=== PATIENT | female | born 1990 | race Caucasian/White ===

== ENCOUNTER 2016-02-25 15:15 | Day surgery (SDC) | payer OTHER ==
[2016-02-25] MEDS ORDERED: SCOPOLAMINE PATCH TOP ONE (15:52)
[2016-02-25] MEDS ORDERED: ceFAZolin 2 GM/50 ML 50 ML IV ONE (15:52)
[2016-02-25] MEDS ORDERED: CELECOXIB 100 MG CAPSULE PO ONE (15:53)
[2016-02-25] MEDS ORDERED: ACETAMINOPHEN 1,000 MG/100 ML 100 ML IV ONE (15:53)
[2016-02-25] MEDS ORDERED: LACTATED RINGERS 1,000 ML IV ONE (16:14)
[2016-02-25] MEDS ORDERED: MIDAZOLAM 2 MG/2 ML VIAL IVP ONE (16:30)
[2016-02-25] MEDS ORDERED: PROPOFOL 200 MG/20 ML VIAL IVP ONE (16:30)
[2016-02-25] MEDS ORDERED: LIDOCAINE-MPF 2% 5 ML VIAL IM ONE (16:30)
[2016-02-25] MEDS ORDERED: fentaNYL 100 MCG/2 ML VIAL IVP ONE (16:30)
[2016-02-25] MEDS ORDERED: ACETAMINOPHEN 1,000 MG/100 ML VIAL IV ONE (16:30)
[2016-02-25] MEDS ORDERED: ceFAZolin 2 GM/50 ML BAG IV ONE (16:30)
[2016-02-25] MEDS ORDERED: BUPIVACAINE 0.25% PF 30 ML VIAL SUBQ ONE ×2 (16:50→17:01)
== END 2016-02-25 15:16 | disposition home or self-care (01) ==
PROC: 0RBN0ZZ Excision of Right Wrist Joint, Open Approach (ICD-10-PCS; principal; 2016-02-25 17:05)
DX: M67.431 Ganglion, right wrist (principal); F17.210 Nicotine dependence, cigarettes, uncomplicated
CPT/HCPCS: 25111; 81025; A9270; J0131; J0690; J3490; J7120

== ENCOUNTER 2016-12-24 11:30 | Emergency (ER) | payer OTHER ==
[2016-12-24] MEDS ORDERED: CYCLOBENZAPRINE 10 MG TABLET PO STA (12:45)
[2016-12-24] MEDS ORDERED: KETOROLAC 60 MG/2 ML VIAL IM STA (12:45)
--- NOTE | 2016-12-24 12:48 | ED Physician Documentation ---
PD HPI BACK INJURY - Stated complaint Stated Complaint: LOW BACK PX - History obtained from History obtained from: Patient, Family - History of Present Illness Location: Right, Lower Type of injury: Other (no recent injury, but "threw out" her back in September) Timing - onset: Other (states started hurting again yesterday) Timing - details: Gradual onset Pain level max: 7 Pain level now: 6 Quality: Pain, Spasm, Similar to prior episodes Improved by: Rest Worsened by: Moving, Palpating Associated symptoms: No: Fever, Weakness, Numbness, Incontinent of urine, Unable to urinate, Hematuria, Incontinent of stool Contributing factors: No: Anticoagulated, Prior back surgery Recently seen: Not recently seen - Additional information Additional information: states radiates to the R leg. Review of Systems Constitutional: denies: Fever, Chills Nose: denies: Rhinorrhea / runny nose, Congestion Throat: denies: Sore throat Cardiac: denies: Chest pain / pressure Respiratory: denies: Cough GI: denies: Abdominal Pain : denies: Dysuria, Frequency, Hesitancy, Now EGA Skin: denies: Rash Musculoskeletal: denies: Neck pain Neurologic: denies: Focal weakness, Numbness, Headache PD PAST MEDICAL HISTORY - Past Medical History Past Medical History: Yes Cardiovascular: None Respiratory: None Endocrine/Autoimmune: None GI: None : None HEENT: None Psych: None Musculoskeletal: Other Derm: None Other Past Medical History: wrist cysts - Past Surgical History Past Surgical History: Yes - Present Medications Home Medications: Ambulatory Orders Medication Instructions Recorded Confirmed Norethindrone AC-Eth Estradiol 1 each PO DAILY 11/13/15 12/24/16 [Loestrin 21 1.5-30 Tablet] Cyclobenzaprine [Flexeril] 10 mg PO TID PRN #20 tablet 12/24/16 Meloxicam [Mobic] 15 mg PO DAILY PRN #20 tablet 12/24/16 - Allergies Allergies/Adverse Reactions: Allergies Allergy/AdvReac Type Severity Reaction Status Date / Time brass AdvReac Rash Uncoded 12/24/16 11:36 - Social History Does the pt smoke?: No Smoking Status: Current every day smoker Does the pt drink ETOH?: Yes Does the pt have substance abuse?: No - Immunizations Immunizations are current?: Yes - POLST Patient has POLST: No PD ED PE NORMAL - Vitals Vital signs reviewed: Yes - General General: Alert and oriented X 3, No acute distress - HEENT HEENT: Moist mucous membranes - Neck Neck: Supple, no meningeal sign - Cardiac Cardiac: RRR - Respiratory Respiratory: No respiratory distress, Clear bilaterally - Abdomen Abdomen: Soft, Non tender, Non distended - Back Back: No spinal TTP (no midline TTP or percussion. paraspinal spasm B low lumbar. NVI.) - Derm Derm: Warm and dry - Extremities Extremities: Other (normal bilateral lower extremity patellar and ankle jerk reflexes. Normal great toe extension bilaterally) - Neuro Neuro: Alert and oriented X 3, multiple resaw operator 2-12 intact, No motor deficit, No sensory deficit, Normal speech - Psych Psych: Normal mood, Normal affect Results - Vitals Vitals: Vital Signs - 24 hr 12/24/ 11:34 Temperature 36 C L Heart Rate 87 Respiratory 18 Rate Blood Pressure 135/94 H O2 Saturation 99 Oxygen O2 Source Room air PD MEDICAL DECISION MAKING - ED course Complexity details: re-evaluated patient, considered differential (no cauda equina, no spinal epidural abscess, no fracture, no aortic dissection or evidence of aneursym rupture), d/w patient, d/w family ED course: Patient is a 26-year-old female who presents to the emergency department with what appears to be sciatica of the right side. No evidence of cauda equina, epidural abscess or fracture. Ambulating well. Given Toradol, dexamethasone and Flexeril. No neurological deficits. Patient counseled regarding signs and symptoms for which I believe and urgent re-evaluation would be necessary. Patient with good understanding of and agreement to plan and is comfortable going home at this time This document was made in part using voice recognition software. While efforts are made to proofread this document, sound alike and grammatical errors may occur. Departure - Departure Disposition: 01 Home, Self Care Clinical Impression: Sciatica Qualifiers: Laterality: right Qualified Code(s): M54.31 - Sciatica, right side Condition: Good Instructions: ED Sciatica, ED Back Care Tips Follow-Up: Richa Souza ARNP [Primary Care Provider] - Within 1 week Prescriptions: Cyclobenzaprine [Flexeril] 10 mg PO TID PRN #20 tablet PRN Reason: Spasms Meloxicam [Mobic] 15 mg PO DAILY PRN #20 tablet PRN Reason: pain Comments: Return if you worsen. This should improve over the next few days. [place]. Do not drive or operate heavy machinery while taking the Flexeril
[2016-12-24] MEDS ORDERED: CYCLOBENZAPRINE 10 MG TABLET PO ONE (12:54)
[2016-12-24] MEDS: DEXAMETHASONE 10 MG/ML VIAL PO STA ×2 (12:54→12:58)
[2016-12-24] MEDS ORDERED: KETOROLAC 60 MG/2 ML VIAL ONE (12:54)
[2016-12-24] MEDS ORDERED: DEXAMETHASONE 10 MG/ML VIAL ONE (12:55)
[2016-12-24 13:09] VITALS: BP 131/87
== END 2016-12-24 13:08 | disposition home or self-care (01) ==
LOC: ED 11:30
DX: M54.31 Sciatica, right side (principal); F17.200 Nicotine dependence, unspecified, uncomplicated
CPT/HCPCS: 96372; 99283; A9270

== ENCOUNTER 2017-05-16 17:35 | Emergency (ER) | payer OTHER ==
--- NOTE | 2017-05-16 20:36 | ED Physician Documentation ---
PD HPI BACK PAIN - Stated complaint Stated Complaint: BACK PX - Chief complaint Chief Complaint: Back Pain - History obtained from History obtained from: Patient - History of Present Illness Timing - onset: Yesterday Timing - duration: Days Timing - details: Abrupt onset, Constant, Waxing and waning Pain level now: 7 Location: Lower, Other (midline) Quality: Pain, Similar to prior episodes Associated symptoms: No: Fever, Weakness, Numbness, Incontinent of urine, Unable to urinate, Hematuria, Incontinent of stool Improves with: Rest Worsened by: Movement Similar symptoms before: Diagnosis (sciatica) - Additional information Additional information: c/o sudden onset midline low back pain radiating down RLE since yesterday; she had been crouched down working on furniture and upon standing, she had sudden onset midline LBP. Similar episode 6 months ago for which she was seen in this ED. She followed-up with her doctor at [facility], no testing or further treatment, as symptoms had resolved. Review of Systems Constitutional: denies: Fever : denies: Dysuria, Frequency, Unable to Void, Incontinent Musculoskeletal: reports: Back pain Neurologic: denies: Focal weakness, Numbness PD PAST MEDICAL HISTORY - Past Medical History Cardiovascular: None Respiratory: None Endocrine/Autoimmune: None GI: None : None HEENT: None Psych: None Musculoskeletal: Other Derm: None - Past Surgical History Past Surgical History: Yes - Present Medications Home Medications: Ambulatory Orders Medication Instructions Recorded Confirmed Norethindrone AC-Eth Estradiol 1 each PO DAILY 11/13/15 05/16/17 [Loestrin 21 1.5-30 Tablet] Cyclobenzaprine [Flexeril] 10 mg PO TID PRN #20 tablet 05/16/17 HYDROcod/ACETAM 5/325 [[place] 5/325] 1 - 2 ea PO Q6H PRN #15 tablet 05/16/17 Meloxicam [Mobic] 15 mg PO DAILY PRN #20 tablet 05/16/17 - Allergies Allergies/Adverse Reactions: Allergies Allergy/AdvReac Type Severity Reaction Status Date / Time brass AdvReac Rash Uncoded 05/16/17 20:09 - Social History Does the pt smoke?: No Smoking Status: Never smoker Does the pt drink ETOH?: Yes Does the pt have substance abuse?: No - Immunizations Immunizations are current?: Yes - POLST Patient has POLST: No PD ED PE NORMAL - Vitals Vital signs reviewed: Yes - General General: Alert and oriented X 3, No acute distress, Well developed/nourished - Back Back: No CVA TTP, No spinal TTP - Derm Derm: Normal color, Warm and dry, No rash - Extremities Extremities: No edema - Neuro Neuro: Alert and oriented X 3, No motor deficit (5/5 bilateral plantarflexion and hip extension) Results - Vitals Vitals: Vital Signs - 24 hr 05/16/17 05/16/17 18:07 21:13 Temperature 36.7 C 36.8 C Heart Rate 88 89 Respiratory 17 18 Rate Blood Pressure 154/107 H 146/88 H O2 Saturation 99 98 Oxygen O2 Source Room air PD MEDICAL DECISION MAKING - ED course Complexity details: reviewed old records, considered differential, d/w patient Departure - Departure Disposition: 01 Home, Self Care Clinical Impression: Back pain Qualifiers: Back pain location: low back pain Chronicity: acute Back pain laterality: right Sciatica presence: with sciatica Sciatica laterality: sciatica of right side Qualified Code(s): M54.41 - Lumbago with sciatica, right side Condition: Good Instructions: NARCOTIC, Oral, ED Sciatica Follow-Up: NATALIYA BLOOD PA-C [Primary Care Provider] - (This week as scheduled) Prescriptions: Cyclobenzaprine [Flexeril] 10 mg PO TID PRN #20 tablet PRN Reason: Spasms HYDROcod/ACETAM 5/325 [[place] 5/325] 1 - 2 ea PO Q6H PRN #15 tablet PRN Reason: Pain Meloxicam [Mobic] 15 mg PO DAILY PRN #20 tablet PRN Reason: Pain Comments: Use the mobic (anti-inflammatory) as prescribed as needed for pain. You can also take the flexeril for muscle spasm or if the mobic alone does not adequately relieve the pain. If these two medications do not provide adequate relief, you can then also take the Vicodin (hydrocodone) as needed as prescribed. Forms: Activity restrictions Discharge Date/Time: 05/16/17 21:13
[2017-05-16] MEDS ORDERED: KETOROLAC 60 MG/2 ML VIAL IM STA (20:50)
[2017-05-16] MEDS ORDERED: DEXAMETHASONE 10 MG/ML VIAL PO STA (20:50)
[2017-05-16] MEDS ORDERED: CYCLOBENZAPRINE 10 MG TABLET PO STA (20:51)
[2017-05-16] MEDS ORDERED: HYDROcod/ACETAM 5/325 MG TABLET PO STA (20:51)
[2017-05-16 21:14] VITALS: BP 146/88
== END 2017-05-16 21:13 | disposition home or self-care (01) ==
LOC: ED 17:35
DX: M54.41 Lumbago with sciatica, right side (principal)
CPT/HCPCS: 96372; 99283; A9270

== ENCOUNTER 2018-06-17 10:02 | Emergency (ER) | payer OTHER ==
[2018-06-17 10:08] VITALS: BP 144/93
--- NOTE | 2018-06-17 11:04 | ED Physician Documentation ---
PD HPI HEENT - Stated complaint Stated Complaint: R EYE PX/SWELLING - Chief complaint Chief Complaint: Heent - History obtained from History obtained from: Patient, Family - History of Present Illness Timing - onset: How many days ago (3) Timing - duration: Days (3) Timing - details: Gradual onset, Still present Location: Nose, Throat, Other (right eye) Improves: Medication Worsens: Swalllowing Associated symptoms: Congestion, Rhinorrhea, Swollen nodes, Headache, Cough Similar symptoms before: Diagnosis (URI) Recently seen: Clinic - Additional information Additional information: 27-year-old female has developed congestion sore throat and intermittent cough for the past 3 days. She is gone into see the primary care doctor yesterday and only had the swollen lymph nodes and when she returned home she began to develop some drainage from the right eye and some irritation to the right eye as well. She has had this happen to her one time previously. Review of Systems Constitutional: denies: Fever Eyes: reports: Discharge, Irritation. denies: Decreased vision Ears: denies: Ear pain Nose: reports: Rhinorrhea / runny nose, Congestion Throat: reports: Sore throat Cardiac: denies: Chest pain / pressure, Palpitations Respiratory: reports: Cough. denies: Dyspnea GI: denies: Vomiting PD PAST MEDICAL HISTORY - Past Medical History Cardiovascular: None Respiratory: None Endocrine/Autoimmune: None GI: None : None HEENT: None Psych: None Musculoskeletal: Other Derm: None - Past Surgical History Past Surgical History: Yes - Present Medications Home Medications: Ambulatory Orders Medication Instructions Recorded Confirmed Norethindrone AC-Eth Estradiol 1 each PO DAILY 11/13/15 05/16/17 [Loestrin 21 1.5-30 Tablet] Cyclobenzaprine [Flexeril] 10 mg PO TID PRN #20 tablet 05/16/17 Meloxicam [Mobic] 15 mg PO DAILY PRN #20 tablet 05/16/17 RX: HYDROcod/ACETAM 5/325 [[place] 1 - 2 ea PO Q6H PRN #15 tablet 05/16/17 5/325] Neomycin/Poly/Dex Ophth Drops 1 drops RIGHTEYE QID #1 bottle 06/17/18 [Maxitrol Ophth Drops] - Allergies Allergies/Adverse Reactions: Allergies Allergy/AdvReac Type Severity Reaction Status Date / Time brass AdvReac Rash Uncoded 06/17/18 10:08 - Social History Does the pt smoke?: No Smoking Status: Never smoker Does the pt drink ETOH?: Yes Does the pt have substance abuse?: No - Immunizations Immunizations are current?: Yes - POLST Patient has POLST: No PD ED PE NORMAL - Vitals Vital signs reviewed: Yes (hypertensive ) - General General: Alert and oriented X 3, No acute distress, Well developed/nourished - HEENT HEENT: Atraumatic, PERRL, EOMI, Ears normal, Moist mucous membranes, Pharynx benign, Other (The right eye has matting and discharge and there is injection to the sclera and swelling of the lids laterally ) - Neck Neck: Supple, no meningeal sign, No bony TTP - Cardiac Cardiac: RRR, No murmur - Respiratory Respiratory: No respiratory distress, Clear bilaterally - Abdomen Abdomen: Soft, Non tender - Back Back: No CVA TTP, No spinal TTP - Derm Derm: Normal color, Warm and dry, No rash - Extremities Extremities: No deformity, No edema - Neuro Neuro: Alert and oriented X 3, wax ball molder 2-12 intact, No motor deficit, No sensory deficit, Normal speech Eye Opening: Spontaneous Motor: Obeys Commands Verbal: Oriented GCS Score: 15 - Psych Psych: Normal mood, Normal affect Results - Vitals Vitals: Vital Signs - 24 hr 06/17/18 10:07 Temperature 36.8 C Heart Rate 90 Respiratory 18 Rate Blood Pressure 144/93 H O2 Saturation 97 Oxygen O2 Source Room air - Labs Labs: Laboratory Tests 06/17/18 11:08 Group A Strep Rapid Negative PD MEDICAL DECISION MAKING - ED course Complexity details: reviewed results, re-evaluated patient, considered differential, d/w patient ED course: 27 y/o female with sore throat has conjunctivitis today and we will place her on some drops. I suspect her URI is viral. Departure - Departure Disposition: 01 Home, Self Care Clinical Impression: Viral URI Conjunctivitis Qualifiers: Conjunctivitis type: acute Acute conjunctivitis type: bacterial Laterality: right Qualified Code(s): H10.31 - Unspecified acute conjunctivitis, right eye Condition: Stable Instructions: ED Conjunctivitis Bacterial, ED URI Viral Follow-Up: Janeth Staton MD [Primary Care Provider] - Prescriptions: Neomycin/Poly/Dex Ophth Drops [Maxitrol Ophth Drops] 1 drops RIGHTNILAME QID #1 bottle Forms: Activity restrictions Discharge Date/Time: 06/17/18 11:46
== END 2018-06-17 11:46 | disposition home or self-care (01) ==
LOC: ED 10:02
DX: J06.9 Acute upper respiratory infection, unspecified (principal); H10.31 Unspecified acute conjunctivitis, right eye
CPT/HCPCS: 87070; 87430; 99283

== ENCOUNTER 2018-07-18 22:21 | Emergency (ER) | payer OTHER ==
[2018-07-18] MEDS ORDERED: ACETAMINOPHEN 500 MG TABLET PO STA (22:37)
--- NOTE | 2018-07-18 22:49 | ED Physician Documentation ---
PD HPI URI - Stated complaint Stated Complaint: SORE THROAT/WHITE SPOTS ON THROAT - Chief complaint Chief Complaint: Heent - History obtained from History obtained from: Patient - History of Present Illness Timing - onset: Yesterday Timing duration: Hours (24) Timing details: Abrupt onset Associated symptoms: Chills, Nasal congestion, Sore throat. No: Fever, Ear pain, Dry cough, Productive cough, Dyspnea, NVD Contributing factors: No: Sick contact Improves by: Nothing Recently seen: Not recently seen - Additional information Additional information: This is a 27-year-old presents with complaints that she saw white spots in the back of her throat and is very sore. She has a very stuffy nose and she is been shivering all day but did not check her temperature. She took DayQuil today and also Mucinex the last dose of anything was at 2 PM. She is also tried Cepacol lozenges but still has a significant sore throat. No coughing and no rash. She has not been around anybody that she knows has been sick. Review of Systems Constitutional: reports: Chills. denies: Fever Ears: denies: Ear pain Nose: reports: Congestion (No discharge), Sinus pressure / pain. denies: Rhinorrhea / runny nose Throat: reports: Sore throat Cardiac: denies: Palpitations Respiratory: denies: Dyspnea, Cough GI: denies: Nausea, Vomiting, Diarrhea PD PAST MEDICAL HISTORY - Past Medical History Past Medical History: Yes Cardiovascular: None Respiratory: None Neuro: None Endocrine/Autoimmune: None GI: None RAILROAD MECHANIC: None : None HEENT: None Psych: None Musculoskeletal: Other Derm: None - Past Surgical History Past Surgical History: Yes - Present Medications Home Medications: Ambulatory Orders Medication Instructions Recorded Confirmed Norethindrone AC-Eth Estradiol 1 each PO DAILY 11/13/15 05/16/17 [Loestrin 21 1.5-30 Tablet] Cyclobenzaprine [Flexeril] 10 mg PO TID PRN #20 tablet 05/16/17 Meloxicam [Mobic] 15 mg PO DAILY PRN #20 tablet 05/16/17 RX: HYDROcod/ACETAM 5/325 [[place] 1 - 2 ea PO Q6H PRN #15 tablet 05/16/17 5/325] Neomycin/Poly/Dex Ophth Drops 1 drops RIGHTEYE QID #1 bottle 06/17/18 [Maxitrol Ophth Drops] - Allergies Allergies/Adverse Reactions: Allergies Allergy/AdvReac Type Severity Reaction Status Date / Time brass AdvReac Rash Uncoded 07/18/18 22:33 - Social History Does the pt smoke?: Yes Smoking Status: Current every day smoker Does the pt drink ETOH?: Yes Does the pt have substance abuse?: No - Immunizations Immunizations are current?: Yes - POLST Patient has POLST: No PD ED PE NORMAL - Vitals Vital signs reviewed: Yes - General General: Alert and oriented X 3, No acute distress, Well developed/nourished - HEENT HEENT: Atraumatic, PERRL, EOMI, Ears normal, Moist mucous membranes, Pharynx benign (There are no obvious white patches at this time. Tonsils are minimally enlarged. Minimal erythema.) - Neck Neck: Supple, no meningeal sign, Other (She does have several small enlarged lymph nodes anterior and posterior cervical) - Cardiac Cardiac: RRR, No murmur - Respiratory Respiratory: No respiratory distress - Abdomen Abdomen: Normal bowel sounds - Derm Derm: Normal color - Neuro Neuro: Alert and oriented X 3 - Psych Psych: Normal mood, Normal affect Results - Vitals Vitals: Vital Signs - 24 hr 07/18/18 07/18/18 22:32 23:35 Temperature 38.8 C H 37.5 C Heart Rate 109 H 106 H Respiratory 18 19 Rate Blood Pressure 147/101 H 136/87 H O2 Saturation 100 97 Oxygen O2 Source Room air - Labs Labs: Laboratory Tests 07/18/18 22:30 Group A Strep Rapid Negative PD MEDICAL DECISION MAKING - ED course Complexity details: d/w patient, d/w family ED course: Rapid strep is negative. Throat culture is pending. Patient was given Tylenol for her fever. We discussed symptomatic management. She was offered a note for work tomorrow which she declined. Departure - Departure Disposition: 01 Home, Self Care Clinical Impression: Sore throat, Viral syndrome Condition: Good Instructions: ED Viral Syndrome Follow-Up: Marcelino Martinez ARNP [Primary Care Provider] - Comments: Home and rest. Drink lots of water. Ibuprofen and/or Tylenol for pain and/or fever. Steam may help as a decongestant and also pseudoephedrine [id number]. Recheck with a provider if you still have a fever in 48 hours. Discharge Date/Time: 07/18/18 23:37
[2018-07-18 23:36] VITALS: BP 136/87
== END 2018-07-18 23:37 | disposition home or self-care (01) ==
LOC: ED 22:21
DX: J02.9 Acute pharyngitis, unspecified (principal); B34.9 Viral infection, unspecified
CPT/HCPCS: 87070; 87430; 99282; 99283; A9270